=== PATIENT | male | born 1995 | race Two or more races ===

== ENCOUNTER 2018-12-29 11:21 | Emergency (ER) | payer OTHER ==
[~2018-12-29] VITALS: Ht 188 cm; Wt 96.6 kg
[2018-12-29] MEDS ORDERED: KEFL500C17 PO (12:42)
[2018-12-29] MEDS ORDERED: BACI500O21 TOP (12:43)
[2018-12-29] MEDS ORDERED: BACITRACIN OINT 30GM TOP ONE (12:45)
[2018-12-29 12:49] VITALS: BP 130/78
== END 2018-12-29 12:51 | disposition home or self-care (01) ==
LOC: M ED 11:21
DX: S61.412A Laceration without foreign body of left hand, initial encounter (principal); W23.0XXA Caught, crushed, jammed, or pinched between moving objects, initial encounter; Y92.89 Other specified places as the place of occurrence of the external cause; Y99.1 Military activity; F17.200 Nicotine dependence, unspecified, uncomplicated